=== PATIENT | female | born 1985 | race Caucasian/White ===

== ENCOUNTER 2022-08-16 10:37 | Emergency (ER) | payer OTHER, SELFPAY ==
[2022-08-16 10:46] VITALS: BP 125/77; PULSE 82; RESP 18; TEMP 37.2; O2SAT 100; BMI 26.2
[2022-08-16 11:02] LABS: MANUAL DIFF FLAG NO
[2022-08-16 11:07] LABS: Basophils Absolute Auto 0.1 X10*3/uL (0.0-0.2); Basophils Percent Auto 0.5 % (0-2); Eosinophils Absolute Auto 0.2 X10*3/uL (0.0-0.4); Eosinophils Percent Auto 1.3 % (0-4); Hematocrit 34.5 % (37.0-47.0); Hemoglobin 10.6 g/dl (12.0-16.0); Imm Gran Abs Auto 0.09 X10*3/uL (0.00-0.03); Imm Gran Pct Auto 0.8 % (0.0-0.4); Lymphocytes Absolute Auto 2.4 X10*3/uL (1.2-4.9); Lymphocytes Percent Auto 20.3 % (20-40); Mean Corpuscular HGB Conc 30.7 g/dl (31.0-35.0); Mean Corpuscular Hemoglobin 22.2 pg (27.0-33.0); Mean Corpuscular Volume 72.3 fL (80.0-98.0); Mean Platelet Volume 10.3 fL (9.4-12.3); Monocytes Absolute Auto 0.9 X10*3/uL (0.1-1.2); Monocytes Percent Auto 7.7 % (2-11); Neutrophils Absolute Auto 8.2 x10*3/uL (2.0-8.3); Neutrophils Percent Auto 69.4 % (45-73); Platelet Count 299 X10*3/uL (160-400); Red Blood Count 4.77 X10*6/uL (4.20-5.50); Red Cell Distribution Width 18.3 % (11.0-16.0); White Blood Count 11.8 X10*3/uL (4.8-10.8)
[2022-08-16 11:20] LABS: Anion Gap 10 (12-20); Blood Urea Nitrogen 13 mg/dL (9-16); Calcium 9.1 mg/dL (8.4-10.2); Carbon Dioxide 25 mmol/L (22-29); Chloride 109 mmol/L (96-108); Creatinine Clr Calc Pharmacy 86.7; Estimated Glomerular Filt Rate > 60; Glucose Random 103 mg/dL (60-115); Potassium 4.2 mmol/L (3.3-5.1); Sodium 140 mmol/L (135-145)
[2022-08-16 18:46] LABS: HCG Quantitative < 2 mIU/mL
== END 2022-08-16 17:07 | disposition left against medical advice (07) ==
PROVIDERS: Emergency Provider Emergency Medicine; PCP Internal Medicine
DX: R10.31 Right lower quadrant pain (principal)
CPT/HCPCS: 36415; 80048; 84702; 85025; 99282; 99283

== ENCOUNTER 2022-08-16 16:45 | Emergency (ER) | payer OTHER, SELFPAY ==
--- NOTE | ~2022-08-16 | US_ITS ---
EXAMINATION: US PELVIS CLINICAL INFORMATION: Right lower quadrant pain with question of torsion or abscess COMPARISON: CT abdomen pelvis earlier today TECHNIQUE: Ultrasound of the pelvis is performed using both transabdominal and transvaginal transducers along with Doppler. Transvaginal imaging is performed due to inadequate visualization transabdominally. FINDINGS: Uterus: The uterus is anteverted and measures 9.1 x 4.4 x 5.8 cm. Endometrium is thickened and heterogeneous at 2.2 cm.. The uterus is smooth in contour with no visible fibroid. Nabothian cysts are present in the cervix Adnexa: Both ovaries are visualized. There is normal color flow to the adnexa. There is no ovarian torsion. There is no pelvic ascites or fluid collection. Right ovary measures 1.7 x 2.2 x 2.4 cm for a volume of 4 mL. Some small benign-appearing cysts are noted in the right ovary as seen on the CT scan. Left ovary measures 1.3 x 2.2 x 1.3 cm for a volume of 2.0 mL. Prominent varices are seen in the left adnexa. No adnexal abscesses or free fluid is seen although a tiny amount was seen on the prior CT. US/US pelvic and transvaginal IMPRESSION: 1. No evidence of ovarian torsion. 2. Thickened heterogeneous endometrium. 3. Prominent left adnexal varices. 4. No abscess is seen.
--- NOTE | ~2022-08-16 | CT_ITS ---
EXAMINATION: CT ABDOMEN AND PELVIS WITH CONTRAST CLINICAL INFORMATION: Severe right lower quadrant pain COMPARISON: None available. TECHNIQUE: Multidetector volumetric images were obtained from the superior aspect of the liver through the pubic symphysis following administration 85 mL of Omnipaque 350 intravenous contrast. Sagittal and coronal reformatted images were obtained on the technologist's workstation. Oral contrast: No This CT examination was performed using dose optimization techniques as appropriate, variously including the following: *Automated exposure control *Adjustment of mA and/or kV according to patient size (this includes techniques or standardized protocols for targeted exams where dose is matched to indication/reason for exam; i.e. extremities or head) *Use of iterative reconstruction technique DLP: 441 mGy-cm FINDINGS: LUNG BASES: The visualized lung bases are unremarkable. LIVER, GALLBLADDER, AND BILIARY TREE: The liver is enlarged measuring over 19 cm in cephalocaudad dimension decreased attenuation suggesting hepatic steatosis in size, shape, and attenuation. Tiny 2 mm hypodensity again noted near the dome of the diaphragm of no concern. No worrisome focal hepatic lesion or biliary ductal dilatation is present. The gallbladder is unremarkable with no evidence of radiopaque gallstones, gallbladder wall thickening, or obvious pericholecystic inflammatory changes. PANCREAS: Unremarkable. SPLEEN: Unremarkable. ADRENAL GLANDS: Unremarkable. KIDNEYS AND URETERS: The kidneys are normal in size, shape, and attenuation. No hydronephrosis, hydroureter, or calculi seen. No perinephric stranding. BLADDER: Unremarkable. GASTROINTESTINAL TRACT: The small and large bowel are unremarkable. The appendix is is not seen with certainty but there is no evidence of appendicitis appendicitis.. ABDOMINAL WALL: No significant hernia is appreciated. LYMPH NODES: No retroperitoneal lymphadenopathy. VASCULAR: Unremarkable. PELVIC VISCERA: An anteverted uterus is present. The endometrium is thickened at about 2.5 cm. There is a tiny amount of free pelvic fluid present. There is a collapsed cyst with enhancing wall in the right ovary measuring only 1.5 cm. No worrisome adnexal mass is not seen. OSSEOUS STRUCTURES: Unremarkable. CT/CT abdomen pelvis w IV con IMPRESSION: 1. A definitive cause for the patient's right lower quadrant pain has not been found. There is a small right-sided ovarian cyst present which appears to be partially collapsed with enhancing smith. Perhaps cyst rupture cause for patient's pain. 2. Incidental note made of an enlarged fatty liver and thickened endometrium. Pelvic ultrasound may be useful. Fleischner guidelines were followed.
--- NOTE | ~2022-08-16 | US_ITS ---
EXAMINATION: US PELVIS CLINICAL INFORMATION: Right lower quadrant pain with question of torsion or abscess COMPARISON: CT abdomen pelvis earlier today TECHNIQUE: Ultrasound of the pelvis is performed using both transabdominal and transvaginal transducers along with Doppler. Transvaginal imaging is performed due to inadequate visualization transabdominally. FINDINGS: Uterus: The uterus is anteverted and measures 9.1 x 4.4 x 5.8 cm. Endometrium is thickened and heterogeneous at 2.2 cm.. The uterus is smooth in contour with no visible fibroid. Nabothian cysts are present in the cervix Adnexa: Both ovaries are visualized. There is normal color flow to the adnexa. There is no ovarian torsion. There is no pelvic ascites or fluid collection. Right ovary measures 1.7 x 2.2 x 2.4 cm for a volume of 4 mL. Some small benign-appearing cysts are noted in the right ovary as seen on the CT scan. Left ovary measures 1.3 x 2.2 x 1.3 cm for a volume of 2.0 mL. Prominent varices are seen in the left adnexa. No adnexal abscesses or free fluid is seen although a tiny amount was seen on the prior CT. US/US pelvic ovarian doppler IMPRESSION: 1. No evidence of ovarian torsion. 2. Thickened heterogeneous endometrium. 3. Prominent left adnexal varices. 4. No abscess is seen.
[2022-08-16 16:50] VITALS: BP 132/80; PULSE 82; RESP 19; TEMP 36.6; O2SAT 100; BMI 25.6
--- NOTE | 2022-08-16 16:53 | ED.ABDPAIN ---
HPI - Abdominal Pain General Chief Complaint: Abdominal Pain Stated Complaint: appendix Time Seen by Provider: 08/16/22 17:23 Source: patient Mode of arrival: ambulatory Limitations: no limitations History of Present Illness HPI narrative: 37 yold female presents to the ED for right lower quadrant abdominal pain that began since last night while she was sleeping. patient also states right sided flank pain. patient states no fever, chills, nuasea, diarrhea, or vaginal bleeding. patient denies any recent trauma. Patient states she had her tubes tied. Related Data Previous Rx's Medication Instructions Recorded ketorolac 10 mg tablet 10 mg PO QID PRN pain 5 days #20 08/16/22 tabs Allergies Allergy/AdvReac Type Severity Reaction Status Date / Time No Known Allergies Allergy Verified 08/16/22 10:45 Review of Systems Review of Systems RLQ pain and flank pain Yes all other systems are reviewed and are negative [facility] Social History Social History Alcohol intake: never Smoked in Last 30 Days: No Use of substances other than those prescribed or required for medical reasons: No Advance Directives: No Advance Directives Information Provided: No Patient : No Physical Exam ED Vital Signs: Vital Signs - 24 hr 08/16/22 16:50 08/16/22 18:23 08/16/22 20:59 Temperature 98 F 98.7 F Pulse Rate 82 55 Respiratory Rate 19 16 Blood Pressure 132/80 101/66 114/67 Pulse Oximetry 100 100 Oxygen Delivery Method Room Air Room Air BMI result Body Mass Index 25.6 Const General: cooperative, healthy appearing, comfortable, no acute distress, well developed, alert, awake and Physically active Orientation/consciousness: oriented to person, oriented to place, oriented to time and patient oriented x3 HENMT Head: Yes normal to inspection, Yes No palpable skull fracture present, Yes normocephalic, Yes atraumatic and No abrasion Eyes General: appearance normal, both eyes and all related structures Pupils: Equal, round and reactive pupils present Neck Neck: Yes normal visual inspection, Yes full ROM, Yes no lymphadenopathy, Yes no meningeal signs, Yes trachea midline, Yes supple, No anterior neck swelling and No tender Chest Chest palpation & inspection: normal inspection of the chest and normal palpation of entire chest wall Resp Effort & Inspection: normal respiratory effort and able to speak in complete sentences Auscultation: clear to auscultation bilaterally Cardio Jugular venous distension: no JVD Heart sounds: S1 normal heart sound present and S2 normal heart sound present GI Inspection: Yes normal to inspection and No abdominal wall ecchymosis Palpation (GI): Soft to palpation, not firm, Tenderness to palpation present (GI) in the RLQ, no guarding and not rigid General: Yes CVA tenderness (Right) Back/Spine/Pelvis Back: CVA tenderness (Right) Skin General skin exam: no rashes or lesions noted and elasticity normal Neuro General: oriented to person, oriented to place, oriented to time, patient oriented x3, gait normal, tone normal, moves all extremities, Normal light touch and pain sensation, no meningeal signs, no focal motor deficits, CN's II-XI intact bilaterally and normal sensation to monofilament Cranial nerves: Yes Equal, round and reactive pupils present Extrem General: Yes normal to inspection and Yes full ROM Psych Appearance: grossly normal, well kempt and not disheveled Course Course Course Narrative: RME - 37 year old female with the history of asthma presents to the ER for evaluation of severe right lower quadrant pain that started at midnight. She has been unable to sleep or get comfortable since the pain started. She was here in the ER earlier this morning but left prior to getting her CT scan. Labs showed WBC 11.8. She came back with worsening pain. She is in triage question her right lower quadrant. IV to be placed and CT scan with contrast to be performed. Patient had her tubes tied and is not . Plan: CT abd/pelvis w/ con Medical Decision Making Medical Decision Making [facility] Narrative: 37-year-old female presents to ED for right lower quadrant flank pain since yesterday. Patient denies any vaginal discharge, vaginal bleeding, dysuria, hematuria, or any vaginal lesions. Abdominal CT scan negative for any abdominal etiology but does shows possible ovarian cyst rupture. Ultrasound negative for ovarian torsion or abscess but does shows ovarian cyst. Patient pain relieved with morphine and toradol. Labs are normal in the morning. uA negative for infection. negative for pregnacy. Differential Diagnosis Differential Diagnoses: The differential diagnosis associated with the presentation includes (Appenditicis, coltis, ovarian cysts, ovarian torsion, kidney stones, pylenophritis) Admission/Observation Consideration of admission/observation: Escalation of care including admission/observation considered Lab Data [facility] Lab Attestation statement: I reviewed the patient's lab results. Labs: Lab Results 08/16/22 08/16/22 Range/Units 20:42 20:42 Urine Color Yellow Urine Appearance Clear Urine pH 7.0 (5.0-9.0) Ur Specific [place] >= 1.030 H (1.005-1.025) Urine Protein Negative (Neg-Trace) mg/dL Urine Glucose (UA) Negative (Negative) mg/dL Urine Ketones Negative (Negative) mg/dL Urine Blood Negative (Negative) Urine Nitrite Negative (Negative) Ur Leukocyte Esterase Negative (Negative) Urine Test NEGATIVE (NEGATIVE) Independent Interpretation I performed an independent interpretation of an: Ultrasound and CT Scan Radiology Impression Discussion of test interpretation with radiology: I have reviewed the radiologist's reading. Prescription Management I considered prescription management with: Pain Medication (toradol) Medications Administered Discontinued Medications Generic Name Dose Route Start Last Admin Trade Name Freq PRN Reason Stop Dose Admin Iohexol 100 ml 08/16/22 17:19 08/16/22 17:20 Iohexol 350 Mg/Ml 100 Ml Infus..Btl IV 08/16/22 17:20 85 ml ONCE ONE Administration Ketorolac Tromethamine 30 mg 08/16/22 17:08 08/16/22 17:24 Ketorolac Tromethamine 30 Mg/Ml Vial IVPUSH 08/16/22 17:09 30 mg ONCE ONE Administration Morphine Sulfate 4 mg 08/16/22 17:55 08/16/22 18:20 Morphine Sulfate 4 Mg/Ml Cartridge IVPUSH 08/16/22 17:56 4 mg ONCE ONE Administration Protocol Morphine Sulfate 4 mg 08/16/22 21:01 08/16/22 21:09 Morphine Sulfate 4 Mg/Ml Cartridge IVPUSH 08/16/22 21:02 4 mg ONCE ONE Administration Protocol Discharge Plan Discharge Clinical Impression: Abdominal pain, Ovarian cyst Patient Disposition: Home, Self-Care Instructions: Ovarian Cyst (ED), Abdominal Pain (ED), Pelvic Pain (ED) Additional Instructions: Your ultrasound shows ovarian cyst. Abdominal CT scan also shows ovarian cyst but the appendix is normal. 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 Return to ED for any worsening abdominal pain, vaginal discharge, vaginal bleeding, dysuria, hematuria, flank pain, fever, chills, nausea, vomiting, or any other concerning symptoms. Prescriptions: New ketorolac 10 mg tablet 10 mg PO QID PRN (Reason: pain) 5 Days Qty: 20 0RF Rx Instructions: received toradol 30mg IM in the ED Stand Alone Forms: Work/School Release Interventions: ED Discharge Assessment Last Done: 08/16/22 22:54 Discharge Date/Time: 08/16/22 22:54 Print Language: Latvian
[2022-08-16] MEDS: iohexoL 350 MG/ML 100 ML INFUS..BTL IV (17:20)
[2022-08-16] MEDS: Ketorolac Tromethamine 30 MG/ML VIAL IVPUSH (17:24)
[2022-08-16] MEDS: Morphine Sulfate 4 MG/ML CARTRIDGE IVPUSH ×2 (18:20→21:09)
[2022-08-16 18:23] VITALS: BP 101/66
[2022-08-16 20:48] LABS: Appearance Urine Clear; Color Urine Yellow; Glucose Urine UA Negative (Negative); Leukocyte Esterase Urine Negative (Negative); Nitrite Urine Negative (Negative); Specific Gravity - Urine >= 1.030 (1.005-1.025); Urine Blood Negative (Negative); Urine Ketones Negative (Negative); Urine Protein Negative (Neg-Trace)
[2022-08-16 20:49] LABS: UPreg QC Valid YES; Urine Pregnancy NEGATIVE (NEGATIVE)
[2022-08-16 20:59] VITALS: BP 114/67; PULSE 55; RESP 16; TEMP 37.1; O2SAT 100
== END 2022-08-16 22:54 | disposition home or self-care (01) ==
PROVIDERS: Physician Assistant; Emergency Provider Student in an Organized Health Care Education/Training Program
DX: R10.31 Right lower quadrant pain (principal); N83.201 Unspecified ovarian cyst, right side
CPT/HCPCS: 74177; 76830; 76856; 81003; 81025; 93975; 96374; 96375; 96376; 99284; J1885; J2270; Q9967

== ENCOUNTER 2025-03-05 12:19 | Outpatient (REF) | payer OTHER, SELFPAY ==
--- OUTSIDE RECORDS SUMMARY | 2025-03-05 11:15 | XMS_ITS | Encounter Summary ---
Author Organization [employer] Address [address] [facility] 7t [place] [address] Care Team Providers Care Optimization Engineer Name Role Phone Tito Stauffer TAMPER OPERATOR Unavailable Unavailable Balbina Reynolds DO Primary Care Provider Encounter Details Date Type Department Care Team (Late st Contact Info) Description 03/05/2025 11:15 AM EST Office Visit [facility] [address] [place] [address] Balbina Reynolds DO [address] [place], [place] [phone] Anemia, unspecified type (Primary Dx) Social History Tobacco Use Types Packs/Day Years Used Date Smoking Tobacco: Every Day Cigarettes Passive Smoke Exposure: Current Smokeless Tobacco: Never Tobacco Cessation:Ready to Q uit: Not Asked; Counseling Given: Not Answered Alcohol Use Standard Drinks/Week Comments Never 0 (1 standard drink = 0.6 oz pur e alcohol) Alcohol Answer Date Recorded How often do you have a drink containing alcohol ? 0 03/05/2025 How many drinks containing a lcohol do you have on a typical day when you are drinking? 0 03/05/2025 How often do you have six or more drinks on one occasion? 0 03/05/2025 Depression Answer Date Recorded Patient Health Questionnaire-9 Score 22 03/05/2025 Patient Health Questionnaire-9 Score 22 03/05/2025 Last PHQ-9: Questionnaire Data Not on file 1 05/06/2024 Housing Stability Answer Date Recorded What is your housing situation today? I have kaden velazquez 03/05/[address] you li ve. Do you have problems with any of the following? None of the above 03/05/2025 Food Insecurity Answer Date Recorded Within the past 12 months, y ou worried that your food would run out before you got money to buy more: Never True 03/05/2025 Within the past 12 months,th e food you bought just didn't last and you didn't have enough money to get more: Never True Transportation Answer Date Recorded In the past 12 months, has l ack of transportation kept you from medical appts, meetings, work or from getting things needed for daily living? No 03/05/2025 Utilities Answer Date Recorded In the past 12 months, has t he electric, gas, oil or water company threatened to shut off services in your home? No 03/05/2025 Depression Answer Date Recorded Patient Health Questionnaire-2 Score 6 03/05/2025 Internet Access Answer Date Recorded Internet Access Q1 Yes 03/05/2025 Internet Access Q2 Not on file 03/05/2025 Comments Unknown Sex and Gender Information Value Date Recorded Sex Assigned at Female 01/17/2022 10:15 AM EDT Legal Sex Female 10:15 AM EDT Gender Identity Female 01/17/2022 10:15 AM EDT Sexual Orientation Straight 01/17/2022 10 :15 AM EDT documented as of this encounter Last Filed Vital Signs Vital Sign Reading Time Taken Comments Blood Pressure 122/84 03/05/2025 11:56 AM EST Pulse 80 03/05/2025 11:56 AM EST Temperature 37 C (98.6 F) 03/05/2025 11:56 AM EST Respiratory Rate 19 03/05/2025 11:56 AM EST Oxygen Saturation - - Inhaled Oxygen Concentration - - Weight 80.5 kg (177 lb 8 oz) 03/05/2025 11:56 AM EST Height 159.7 cm (5' 2.89 ) 03/05/2025 11:[address] Body Mass Index 31.55 03/05/2025 11:56 AM EST documented in this encounter Functional Status * Over the past 2 weeks, how often have you been bothered by any of the following problems? Question Answer Date of Assessment Author Patient Health Questionnaire-2 Score 6 02/17 11:58 AM Timo Watts MA * Little interest or pleasure in doing things Answer Date of Assessment Author Nearly every day 03/05/2025 11:58 AM Lan Watts MA * Feeling down, depressed, or hopeless Answer Date of Assessment Author Nearly every day 03/05/2025 11:58 AM Lan Watts [place] * Trouble falling or staying asleep, or sleeping too much Answer Date of Assessment Author Nearly every day 03/05/2025 11:58 AM Lan Watts MA * Feeling tired or having little energy Answer Date of Assessment Author Nearly every day 03/05/2025 11:58 AM Lan Watts MA * Poor appetite or overeating Answer Date of Assessment Author Nearly every day 03/05/2025 11:58 AM Lan Watts MA * Feeling bad about yourself - or that you are a failure or have let yourself or your family down Answer Date of Assessment Author Several days 03/05/2025 11:58 AM Gail Watts MA * Trouble concentrating on things, such as reading the newspaper or watching television Answer Date of Assessment Author Nearly every day 03/05/2025 11:58 AM Lan Watts MA * Moving or speaking so slowly that other people could have noticed? Or the opposite - being so fidgety or restless that you have been moving around a lot more than usual. Answer Date of Assessment Author Nearly every day 03/05/2025 11:58 AM Lan Watts MA * Thoughts that you would be better off or hurting yourself in some way Answer Date of Assessment Author Not at all 03/05/2025 11:58 AM Gail Watts MA * Patient Health Questionnaire-9 Score Answer Date of Assessment Author 03/05/2025 11:58 AM Gail Watts MA * Over the last 2 weeks, how often have you been bothered by any of the following problems? Question Answer Date of Assessment Author Feeling nervous, anxious, or on edge 3 02/17 11:58 AM Timo Watts MA Not being able to stop or co ntrol worrying 3 03/05/2025 11:58 AM Timo Watts M A Worrying too much about diff erent things 3 03/05/2025 11:58 AM Timo Watts M A Trouble relaxing 3 03/05/2025 11:58 AM Timo Watts MA Being so restless that it is hard to sit still 1 03/05/2025 11:58 AM Timo Watts M A Becoming easily annoyed or irritable 3 02/17 11:58 AM Timo Watts MA Feeling afraid as if somethi ng awful might happen 0 03/05/2025 11:58 AM Timo Watts M A KEILY-7 Total Score 16 03/05/2025 11:58 AM Timo Watts MA * How difficult have these problems made it for you to do your work, take care of things at home, or get along with other people? Answer Date of Assessment Author Very difficult 03/05/2025 11:58 AM Gail Watts MA documented as of this encounter Plan of Treatment Scheduled Orders Name Type Priority Associated Diagnoses Orde r Schedule Hepatitis B surface antigen, EIA Lab Routine Anemia, unspecified type Expected: 03/05/2025 (Approximate), Expires: 03/05/2026 Chlamydia/N. Gonorrhoeae RNA, TMA, Urogenitial Microbiology Routine Anemia, unspecified type Ordered: 03/05/2025 HIV-1/2 Antigen and Antibodies, Fourth Generation, with Reflexes Lab Routine Anemia, unspecified type Expected: 03/05/2025 (Approximate), Expires: 03/05/2026 Hepatitis C Antibody with Reflex to HCV, RNA, Quantitative, Real-Time PCR Lab Routine Anemia, unspecified type Expected: 03/05/2025, Expires: 03/05/2026 RPR (Monitor) with Reflex to Titer Lab Routine Anemia, unspecified type Expected: 03/05/2025, Expires: 03/05/2026 Hepatitis B Surface Antibody, Qualitative Lab Routine Anemia, unspecified type Expected: 03/05/2025 (Approximate), Expires: 03/05/2026 Vitamin B12 (Cobalamin) and Folate Panel, Serum Lab Routine Anemia, unspecified type Expected: 03/05/2025, Expires: 03/05/2026 Hepatitis A Antibody, Total Lab Routine Anemia, unspecified type Expected: 03/05/2025 (Approximate), Expires: 03/05/2026 Hepatitis B Core Antibody, Total Lab Routine Anemia, unspecified type Expected: 03/05/2025 (Approximate), Expires: 03/05/2026 documented as of this encounter Procedures Procedure Name Priority Date/Time Associated Diagnosis Comments VITAMIN D,25-OH,TOTAL,IA Routine 03/05/2025 12:43 PM EST Anemia, unspecified type IRON AND TOTAL IRON BINDING CAPACITY Routine 03/05/2025 12:43 PM EST Anemia, unspecified type CBC Routine 03/05/2025 12:43 PM EST Anemia, unspecified type TSH Routine 03/05/2025 12:43 PM EST Anemia, unspecified type T4, FREE Routine 03/05/2025 12:43 PM EST Anemia, unspecified type MAGNESIUM Routine 03/05/2025 12:43 PM EST Anemia, unspecified type HEMOGLOBIN A1C Routine 03/05/2025 12:43 PM EST Anemia, unspecified type FERRITIN Routine 03/05/2025 12:43 PM EST Anemia, unspecified type HEPATIC FUNCTION PANEL Routine 03/05/2025 12:43 PM EST Anemia, unspecified type LIPID PANEL, STANDARD Routine 03/05/2025 12:43 PM EST Anemia, unspecified type BASIC METABOLIC PANEL Routine 03/05/2025 12:43 PM EST Anemia, unspecified type documented in this encounter Results * Magnesium (03/05/2025 12:43 PM EST) Magnesium 2.0 1.6 - 2.6 mg/dL [facility] Blood Venous blood specimen / Unknown 03/05/2025 12:43 PM EST 03/05/2025 2:25 PM EST us Balbina Reynolds DO LAB BLOOD ORDERABLES Final R esult Performing Organization Address City/[facility]/ZIP Co de Phone Number [facility] [address] [place] [phone] * (ABNORMAL) Iron And Total Iron Binding Capacity (03/05/2025 12:43 PM EST) Pathologist [facility] Iron 57 30 - 160 mcg/dL [facility] Total Iron Binding Capacity 420 228 - 428 mcg/dL [facility] Percent Iron Saturation 14(L) 15 - 50 % [facility] Unsaturated Iron Binding 363 ug/dL [facility] Blood Venous blood specimen / Unknown 03/05/2025 12:43 PM EST 03/05/2025 2:25 PM EST us Balbina Reynolds DO LAB BLOOD ORDERABLES Final R esult Performing Organization Address [facility] Co de Phone Number [facility] [address] [place] [phone] * (ABNORMAL) Ferritin (03/05/2025 12:43 PM EST) Pathologist [facility] Ferritin 9(L) 10 - 250 ng/mL [facility] Blood Venous blood specimen / Unknown 03/05/2025 12:43 PM EST 03/05/2025 2:25 PM EST us Balbina Reynolds DO LAB BLOOD ORDERABLES Final R esult Performing Organization Address City/[facility]/ZIP Co de Phone Number [facility] [address] [place] [phone] * (ABNORMAL) Basic Metabolic Panel (03/05/2025 12:43 PM EST) Pathologist [facility] Sodium 139 135 - 145 mmol/L [facility] Potassium 4.0 3.3 - 5.1 mmol/L [facility] Chloride 107 96 - 108 mmol/L [facility] Carbon Dioxide 25 22 - 29 mmol/L [facility] Anion Gap 11(L) 12 - 20 [facility] Urea Nitrogen (BUN) 11 9 - 16 mg/dL [facility] Creatinine, Serum 0.64 0.5 - 1.4 mg/dL [facility] Estimated Glomerular Filt Rate >60 [facility] Comment:Chronic Kidney Disea se: Estimated GFR < 60 mL/min/[id number] Kidney Disease: Estimated GFR < 15 mL/min/1.73m2 Glucose 101 60 - 115 mg/dL [facility] Calcium 9.2 8.4 - 10.2 mg/dL [facility] Blood Venous blood specimen / Unknown 03/05/2025 12:43 PM EST 03/05/2025 2:25 PM EST us Balbina Reynolds DO LAB BLOOD ORDERABLES Final R esult Performing Organization Address City/State/[facility] Co de Phone Number [facility] [address] [place] [address] [phone] * (ABNORMAL) CBC (03/05/2025 12:43 PM EST) Pathologist [facility] White Blood Count 11.0(H) 4.8 - 10.8 X10*3/uL [facility] Red Blood Count 5.04 4.20 - 5.50 X10*6/uL [facility] Hemoglobin 12.0 12.0 - 16.0 g/dl [facility] Hematocrit 37.3 37.0 - 47.0 % [facility] Mean Corpuscular Volume 74.0(L) 80.0 - 98.0 fL [facility] Mean Corpuscular Hemoglobin 23.8(L) 27.0 - 33.0 pg [facility] Mean Corpuscular HGB Conc 32.2 31.0 - 35.0 g/dl [facility] Red Cell Distribution Width 17.3(H) 11.0 - 16.0 % [facility] Platelet Count 361 160 - 400 X10*3/uL [facility] Mean Platelet Volume 10.9 9.4 - 12.3 fL [facility] NRBC Pct Auto 0.0 0.0 - 0.2 /100WBC [facility] NRBC Abs Auto 0.000 0.0 - 0.012 X10*3/uL [facility] Blood Venous blood specimen / Unknown 03/05/2025 12:43 PM EST 03/05/2025 2:22 PM EST Balbina Reynolds DO LAB BLOOD ORDERABLES Final R esult [facility] [address] [place] [phone] * Hemoglobin A1c (03/05/2025 12:43 PM EST) Hemoglobin A1c 4.8 <6.0 % [facility] Comment:Hemoglobin A1C Refer ence Range Adults: 4.8 - 6.0 % Non diabetic: < 6.0 % Goal: < 7.0 %Additional Action Suggested: > 8.0 %Note: Hemoglobin A1c results are invalid for patients with abnormal amounts of HbF. Blood transfusions may impact the HbA1c concentration in the patient sample. Estimated Average Glucose 91 mg/dL [facility] Comment:eAG = Estimated ave rage glucose which is %A1C expressed asaverage glucose, using the formula of the [id number] Glucose study (ADAG), Diabetes Care, Vol.31,#8,Oct. 2007 Blood Venous blood specimen / Unknown 03/05/2025 12:43 PM EST 03/05/2025 2:22 PM EST Balbina Reynolds DO LAB BLOOD ORDERABLES Final R esult [facility] [address] [place] [phone] * (ABNORMAL) Hepatic Function Panel (03/05/2025 12:43 PM EST) Bilirubin, Total 0.4 0.0 - 1.0 mg/dL [facility] Bilirubin, Direct 0.2 0.0 - 0.5 mg/dL [facility] Aspartate Amino Transferase 44(H) 5 - 31 U/L [facility] Alanine Aminotransferase 103(H) 0 - 31 U/L [facility] Total Protein 7.5 6.5 - 8.0 g/dL [facility] Albumin Level 4.5 3.5 - 5.0 g/dL [facility] Alkaline Phosphatase 127(H) 39 - 117 U/L [facility] Blood Venous blood specimen / Unknown 03/05/2025 12:43 PM EST 03/05/2025 2:25 PM EST us Balbina Reynolds DO LAB BLOOD ORDERABLES Final R esult [facility] [address] [place] [phone] * (ABNORMAL) Vitamin D, 25-Hydroxy, Total, Immunoassay (03/05/2025 12:43 PM EST) Vitamin D 25-OH Total 15.6(L) >30 ng/mL [facility] Comment: Health Based Reference Values*< 20 ng/mL Auswaqcsk72-73 ng/mL Insufficient> 30 ng/mL Sufficient*Naif WOLFE. N Engl J Med. 2007;357:266-280There is no well-established upper level of normal vitamin Dlevels. Some laboratories use 50 ng/mL as an upper limit ofnormal. However, toxicity is patient-dependent and may occurat any level. Careful correlation with the patient'spresentation is necessary and, if there is concern forvitamin D toxicity, treatment should be consideredirrespective of the serum level.Care must be taken in interpreting Vitamin D results fromdifferent laboratories and methodologies. Published datademonstrated that results from patients undergoinghemodialysis may show a negative bias when tested withvarious automated 25-OH vitamin D assays when compared toLC-MS/MS.When testing samples from patients whose predominant form ofVitamin D is Vitamin D2, such as patients receiving VitaminD2 supplementation, results that are subtherapeutic shouldbe confirmed with another method such as LC-MS/MS. Blood Venous blood specimen / Unknown 03/05/2025 12:43 PM EST 03/05/2025 2:25 PM EST Balbina Reynolds DO LAB BLOOD ORDERABLES Final R esult Performing Organization Address City/[facility]/ZIP Co de Phone Number [facility] [address] [place] [phone] * TSH (03/05/2025 12:43 PM EST) Thyroid Stimulating Hormone 0.98 0.32 - 4.0 uIU/mL [facility] Comment:TSH 3rd Generation ( [facility]) Blood Venous blood specimen / Unknown 03/05/2025 12:43 PM EST 03/05/2025 2:25 PM EST Balbina Reynolds DO LAB BLOOD ORDERABLES Final R esult Performing Organization Address City/[facility]/ZIP Co de Phone Number [facility] [address] [place] [address] [phone] * (ABNORMAL) Lipid Panel, Standard (03/05/2025 12:43 PM EST) Triglycerides 169(H) <150 mg/dL [facility] Comment:Desirable Triglyceri de: less than 150 mg/dLBorderline High Triglyceride 150-199 mg/dLHigh Triglyceride: 200-499 mg/dLVery High Triglyceride: greater than or equal to 5OO mg/dL Cholesterol 162 <200 mg/dL [facility] Comment:Desirable Cholestero l: less than 200 mg/dLBorderline High Cholesterol: 200-239 mg/dLHigh Cholesterol: greater than 239 mg/dL LDL Cholesterol Calculated 94 <100 mg/dL [facility] Comment:Desirable LDL: less than 100 mg/dLNear Optimal/Above Optimal LDL: 110- 129 mg/dLBorderline High LDL: 130-159 mg/dLHigh LDL: 160-189 mg/dLVery High LDL: greater than or equal to 190 mg/dL HDL Cholesterol 35(L) >40 mg/dL [facility] Comment:Desirable HDL: great er than 40 mg/dL Note: This HDL assay may give artificially low results in patients with liver disease. Blood Venous blood specimen / Unknown 03/05/2025 12:43 PM EST 03/05/2025 2:25 PM EST us Balbina Reynolds DO LAB BLOOD ORDERABLES Final R esult Performing Organization Address [facility] de Phone Number [facility] [address] [place] [address] [phone] * T4, Free (03/05/2025 12:43 PM EST) Free T4 (Free Thyroxine) 0.86 0.71 - 1.85 ng/dL [facility] Blood Venous blood specimen / Unknown 03/05/2025 12:43 PM EST 03/05/2025 2:25 PM EST Balbina Reynolds DO LAB BLOOD ORDERABLES Final R esult Performing Organization Address [facility] Co de Phone Number [facility] [address] [place] [address] [phone] documented in this encounter Visit Diagnoses Diagnosis Anemia, unspecified type- Primary documented in this encounter Additional Health Concerns Assessment Noted Time PHQ-9 Depression Total Score: 22 025 11:58 AM EST documented as of this encounter Care Teams Optimization Engineer Relationship Specialty Start Date End Date Balbina Reynolds DO [address] [place] [phone] PCP - General Family Medicine 12/06/23 Tito Stauffer FNP Nurse Practitioner Family Medicine 01/31/23 documented as of this encounter
[2025-03-05 14:31] LABS: Hematocrit 37.3 % (37.0-47.0); Hemoglobin 12.0 g/dl (12.0-16.0); Mean Corpuscular HGB Conc 32.2 g/dl (31.0-35.0); Mean Corpuscular Hemoglobin 23.8 pg (27.0-33.0); Mean Corpuscular Volume 74.0 fL (80.0-98.0); NRBC Abs Auto 0.000 X10*3/uL (0.0-0.012); NRBC Pct Auto 0.0 /100WBC (0.0-0.2); Platelet Count 361 X10*3/uL (160-400); Red Blood Count 5.04 X10*6/uL (4.20-5.50); White Blood Count 11.0 X10*3/uL (4.8-10.8)
[2025-03-05 15:29] LABS: Alanine Aminotransferase 103 U/L (0-31); Albumin Level 4.5 g/dL (3.5-5.0); Alkaline Phosphatase 127 U/L (39-117); Anion Gap 11 (12-20); Aspartate Amino Transferase 44 U/L (5-31); Blood Urea Nitrogen 11 mg/dL (9-16); Calcium 9.2 mg/dL (8.4-10.2); Carbon Dioxide 25 mmol/L (22-29); Chloride 107 mmol/L (96-108); Cholesterol 162 mg/dL (<200); Estimated Glomerular Filt Rate > 60; HDL Cholesterol 35 mg/dL (>40); Iron 57 mcg/dL (30-160); Magnesium 2.0 mg/dL (1.6-2.6); Percent Iron Saturation 14 % (15-50); Potassium 4.0 mmol/L (3.3-5.1); Sodium 139 mmol/L (135-145); Total Iron Binding Capacity 420 mcg/dL (228-428); Total Protein 7.5 g/dL (6.5-8.0); Triglycerides 169 mg/dL (<150); Unsaturated Iron Binding 363 ug/dL
[2025-03-05 15:51] LABS: Ferritin 9 ng/mL (10-250); Free T4 (Free Thyroxine) 0.86 ng/dL (0.71-1.85); Thyroid Stimulating Hormone 0.98 uIU/mL (0.32-4.0)
--- OUTSIDE RECORDS SUMMARY | 2025-03-05 16:13 | XMS_ITS | Encounter Summary ---
Author Organization [employer] Address [address] [facility] 7 [place] [address] Care Team Providers Care Health Information Systems Technician Name Role Phone Tito Stauffer CUSTOM CAR BUILDER Unavailable Unavailable Balbina Reynolds DO Primary Care Provider [phone] Reason for Visit * Reason Onset Date Comments Appointment Request 03/04/2025 Encounter Details Date Type Department Care Team ([facility] st Contact Info) Description 03/04/2025 Telephone [facility] MEDICINE [address] [place], [place] [phone] Balbina Reynolds DO [address] [place], [place] [phone] Appointment Request Social History Tobacco Use Types Packs/Day Years Used Date Smoking Tobacco: Every Day Cigarettes Passive Smoke Exposure: Never Smokeless Tobacco: Never Alcohol Use Standard Drinks/Week Comments Never 0 [...] AM EDT documented as of this encounter Miscellaneous Notes * Telephone Encounter - Maliha Carver RN - 03/04/2025 12:40 PM EST TC placed to patient [phone] in regards to below message. Patient reports she did not attend her appointment because her ride never showed. RN r/s to 03/05/25 at 11:15AM, patient agreed to appointment date and time. Patient to f/u PRN. * Telephone Encounter - Rimma Shaffer - 03/04/2025 12:03 PM EST Tc from pt requesting to r/s 03/04 site on sick Please contact at [phone] documented in this encounter Plan of Treatment Not on file documented as of this encounter Visit Diagnoses Not on filedocumented in this encounter Additional Health Concerns Assessment Noted Time PHQ-9 Depression Total Score: 6 07/25/19 24 9:56 AM EDT documented as of this encounter Care Teams Health Information Systems Technician Relationship Specialty Start Date End Date Balbina Reynolds DO [address] [place] [phone] PCP - General Family Medicine 12/06/23 Tito Stauffer FNP Nurse Practitioner Family Medicine 01/31/23 documented as of this encounter
--- OUTSIDE RECORDS SUMMARY | 2025-03-05 16:13 | XMS_ITS | Encounter Summary ---
Author Organization [email or web address] Address [address] [facility] 7 [place] [address] Care Team Providers Care Bath Tester Name Role Phone Tito Stauffer SECURITY INTERN Unavailable Unavailable Balbina Reynolds DO Primary Care Provider [phone] Reason for Visit * Reason Onset Date Comments No Show 03/04/2025 Encounter Details Date Type Department Care Team (Late st Contact Info) Description 03/04/2025 Telephone [facility] MEDICINE [address] [place], [place] [phone] Balbina Reynolds DO [address] [place], [place] [phone] No Show Social History Tobacco Use Types Packs/Day Years [...] encounter Miscellaneous Notes * Telephone Encounter - Jennifer Montalvo - 03/04/2025 12:35 PM EST Pt no showed to appointment on 03/04/25 sick onsite. documented in this encounter Plan of Treatment Not on file documented as of this encounter Visit Diagnoses Not on filedocumented in this encounter Additional Health Concerns Assessment Noted Time PHQ-9 Depression Total Score: 6 07/25/19 24 9:56 AM EDT documented as of this encounter Care Teams Bath Tester Relationship Specialty Start Date End Date Balbina Reynolds DO [address] [place] [address] PCP - General Family Medicine 12/06/23 Tito Stauffer FNP Nurse Practitioner Family Medicine 01/31/23 documented as of this encounter
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
--- OUTSIDE RECORDS SUMMARY | 2025-03-05 16:13 | XMS_ITS | Encounter Summary ---
Author Organization [employer] Address [address] [facility] 7 [place] [address] Care Team Providers Care Scraper Burrer Name Role Phone Tito Stauffer WELDING MACHINE ASSEMBLER Unavailable Unavailable Balbina Reynolds DO Primary Care Provider [phone] Encounter Details Date Type Department Care Team (Late st Contact Info) Description 03/04/2025 Telephone [facility] [address], [place] [phone] Balbina Reynolds DO [address] [place], [place] [phone] Social History Tobacco Use Types Packs/Day Years [...] AM EDT documented as of this encounter Functional Status * Over the [...] as of this encounter Plan of Treatment Not on file documented as of this encounter Visit Diagnoses Not on filedocumented in this encounter Additional Health Concerns Assessment Noted Time PHQ-9 Depression Total Score: 6 07/25/19 24 9:56 AM EDT documented as of this encounter Care Teams Scraper Burrer Relationship Specialty Start Date End Date Balbina Reynolds DO [address] [place] [address] [place] [phone] PCP - General Family Medicine 12/06/23 Tito Stauffer FNP Nurse Practitioner Family Medicine 01/31/23 documented as of this encounter
--- OUTSIDE RECORDS SUMMARY | 2025-03-05 16:13 | XMS_ITS | Encounter Summary ---
Author Organization [employer] Address [address] [facility] 7t [place] [address] Care Team Providers Care Ibm Mainframe Systems Programmer Name Role Phone Tito Stauffer FRANCHISE SPECIALIST Unavailable Unavailable Balbina Reynolds DO Primary Care Provider [phone] Encounter Details Date Type Department Care Team (Latest Contact Info) Description 03/05/2025 Travel Social History Tobacco Use Types Packs/Day Years Used Date Smoking Tobacco: Every Day Cigarettes Passive Smoke Exposure: Current Smokeless Tobacco: Never Alcohol Use Standard Drinks/Week [...] is your housing situation today? I have kadenifrah velazquez 03/05/[address] you [...] Questionnaire-9 Score Answer Date of Assessment Author 22 03/05/2025 11:58 AM Gail Watts MA * [...] Assessment Author Very difficult 03/05/2025 11:58 AM EST Gail Fleming MA documented as of this encounter Plan of Treatment Not on file documented as of this encounter Visit Diagnoses Not on filedocumented in this encounter Additional Health Concerns Assessment Noted Time PHQ-9 Depression Total Score: 22 025 11:58 AM EST documented as of this encounter Care Teams Ibm Mainframe Systems Programmer Relationship Specialty Start Date End Date Balbina Reynolds DO [address] [place] [address] [place] [address] PCP - General Family Medicine 12/06/23 Tito Stauffer FNP Nurse Practitioner Family Medicine 01/31/23 documented as of this encounter
--- OUTSIDE RECORDS SUMMARY | 2025-03-05 16:14 | XMS_ITS | Encounter Summary ---
Author Organization [employer] Address [address] [place] [address] [place], [place] [address] Care Team Providers Care Roll Panner Name Role Phone Jacquelin Sumner Primary Care Provider [phone] Aliza Dawkins MD Primary Care Pro vider Tito Stauffer Unavailable Unavailable Balbina Reynolds DO Primary Care Provider [phone] Encounter Details Date Type Department Care Team ([facility] st Contact Info) Description 08/25/2022 Abstract [facility] Information Management [address] [place] [address] Jacquelin Sumner FNP [address] [place] [address] Social History Tobacco Use Types Packs/Day Years Used Date Smoking Tobacco: Never Passive Smoke Exposure: Never Smokeless Tobacco: Never PHQ-2 Answer Date Recorded Patient Health Questionnaire-2 Score 2 06/02/2022 Comments Unknown Sex and Gender Information Value Date Recorded Sex Assigned at Female 01/17/2022 10:15 AM EDT Legal Sex Female 10:15 AM EDT Gender Identity Female 01/17/2022 10:15 AM EDT Sexual Orientation Straight 01/17/2022 10 :15 AM EDT COVID-19 Exposure Response Date Recorded In the last 10 days, have yo u been in contact with someone who was confirmed or suspected to have Coronavirus/COVID-19? No / Unsure 08/16/2022 9:54 AM EDT documented as of this encounter Plan of Treatment Not on file documented as of this encounter Visit Diagnoses Not on filedocumented in this encounter Additional Health Concerns Assessment Noted Time PHQ-9 Depression Total Score: 8 06/03/19 23 11:08 AM EDT documented as of this encounter Care Teams Roll Panner Relationship Specialty Start Date End Date Jacquelin Sumner FNP [address] [place] [address] PCP - General Family Medicine 03/15/22 08/30/22 Aliza Dawkins MD [address] [place] [address] PCP - General Internal Medicine 08/31/22 11/27/23 Balbina Reynolds DO [address] [place] [address] PCP - General Family Medicine 12/06/23 Tito Stauffer FNP [address] [place] [address] Nurse Practitioner Family Medicine 01/31/23 documented as of this encounter
--- OUTSIDE RECORDS SUMMARY | 2025-03-05 16:14 | XMS_ITS | Encounter Summary ---
Author Organization [employer] Address [address] [facility] [address], [place] [address] Care Team Providers Care Tray Server Name Role Phone Jacquelin Sumner Primary Care Provider [phone] Aliza Dawkins MD Primary Care Pro vider Tito Stauffer Unavailable Unavailable Balbina Reynolds DO Primary Care Provider [phone] Reason for Visit * Reason Onset Date Comments TP APPT 06/13/2022 Encounter Details Date Type Department Care Team (Late st Contact Info) Description 06/13/2022 Telephone [facility] MEDICINE [address] [place] [address] Jacquelin Sumner FNP [address] [place], [place] [phone] TP APPT Social History Tobacco Use Types Packs/Day Years Used Date Smoking Tobacco: Never Assessed PHQ-2 Answer Date Recorded Patient Health Questionnaire-2 Score 2 06/02/2022 Comments Unknown Sex and Gender Information Value Date Recorded Sex Assigned at Female 01/17/2022 10:15 AM EDT Legal Sex Female 10:15 AM EDT Gender Identity Female 01/17/2022 10:15 AM EDT Sexual Orientation Straight 01/17/2022 10 :15 AM EDT documented as of this encounter Miscellaneous Notes * Telephone Encounter - Germán Zamorano - 06/13/2022 2:06 PM EDT Tc from pt requesting to r/s appt for TP omn 06/13/2022 Please contact pt at [phone] documented in this encounter Plan of Treatment Not on file documented as of this encounter Visit Diagnoses Not on filedocumented in this encounter Additional Health Concerns Assessment Noted Time PHQ-9 Depression Total Score: 8 06/03/19 11:08 AM EDT documented as of this encounter Care Teams Tray Server Relationship Specialty Start Date End Date Jacquelin Sumner FNP [address] [place] [address] PCP - General Family Medicine 03/15/22 08/30/22 Aliza Dawkins MD [address] [place] [address] PCP - General Internal Medicine 08/31/22 11/27/23 Balbina Reynolds DO [address] [place] [address] PCP - General Family Medicine 12/06/23 Tito Stauffer FNP [address] [place] [address] Nurse Practitioner Family Medicine 01/31/23 documented as of this encounter
--- OUTSIDE RECORDS SUMMARY | 2025-03-05 16:14 | XMS_ITS | Clinical Summary ---
Author Organization [facility] Address [address] [place] [address] Phone Care Team Providers Care Masonry Inspector Name Role Phone Physician, No Pcp Primary Care Provider Unavaila ble Allergies No known active allergies Medications meclizine (ANTIVERT) 25 mg tablet Take 1 tablet (25 mg total) by mouth 3 (three) times a day if needed for dizziness for up to 10 days. 30 tablet 02/27/20 25 Active Problems No known active problems Encounters Date Type Department Care Team Description 02/15/2025 7:51 PM EST - 02/16/2025 1:15 AM EST Emergency [facility] Emergency [address] [place] [address] Pro Kraus MD Benign positional vertigo, bilateral (Primary Dx); Migraine without aura and without status migrainosus, not intractable Discharge Disposition: Home or Self Care from Last 3 Months Medical History Medical History Date Comments Asthma Depression Anxiety Seizures ([facility] V24, [facility] V28) Social History Tobacco Use Types Packs/Day Years Used Date Smoking Tobacco: Every Day Cigarettes Smokeless Tobacco: Never Tobacco Cessation:Ready to Q uit: Not Asked; Counseling Given: Not Answered Alcohol Use Standard Drinks/Week Comments Never 0 (1 standard drink = 0.6 oz pur e alcohol) Comments No Sex and Gender Information Value Date Recorded Sex Assigned at Not on file Legal Sex Female 7:36 AM EST Gender Identity Not on file Sexual Orientation Not on file Last Filed Vital Signs Vital Sign Reading Time Taken Comments Blood Pressure 95/71 02/16/2025 12:30 AM EST Pulse 56 02/16/2025 12:30 AM EST Temperature 36.6 C (97.9 F) 02/16/2025 12:30 AM EST Respiratory Rate 18 02/16/2025 12:30 AM EST Oxygen Saturation 100% 02/16/2025 12:30 AM EST Inhaled Oxygen Concentration - - Weight 68 kg (150 lb) 05/14/2024 7:44 AM EST Height 157.5 cm (5' 2 ) 05/14/2024 7:44 AM EST Body Mass Index 27.44 05/14/2024 7:44 AM EST Plan of Treatment Health Maintenance Due Date Last Done Comments Breast Cancer Screening 1983 Hepatitis B Vaccines (1 of 3 - 19+ 3-dose series) 2002 Cervical Cancer Screening: P ap Smear 2004 HPV Vaccines (1 - 3-dose SCD M series) 2010 Depression Screening 03/20/2024 Cholesterol Screening (Lipid Panel) 05/14/2024 HIV Screening 05/14/2024 Hepatitis C Screening 05/14/2024 Medicare Annual Wellness Visit 05/14/2024 Social Influencers of Health Screening 05/14/2024 COVID-19 Vaccine (1 - 2024-2 6 season) 2024 Influenza Vaccine (#1) 2024 , 04/12/2017, 12/26/2012 DTaP,Tdap,and Td Vaccines (4 - Td or Tdap) 08/12/2027 08/11/2017, 09/13/2014, 11/02/2013 RSV Immunization Adult Patients (1 - 1-dose 75+ series) 2058 MMR Vaccines Aged Out 11/02/2013 No longer eligi ble based on patient's age to complete this topic Pneumococcal Vaccine: Pediatrics (0 to 5 Years) and At-Risk Patients (6 to 49 Years) Completed 12/06/2023, 09/13/2014, 11/02/2013 HIB Vaccines Aged Out No longer eligi ble based on patient's age to complete this topic Hepatitis A Vaccines Aged Out No long er eligible based on patient's age to complete this topic IPV Vaccines Aged Out No longer eligi ble based on patient's age to complete this topic Meningococcal ACWY Vaccine Aged Out N o longer eligible based on patient's age to complete this topic Meningococcal B Vaccine Aged Out No l onger eligible based on patient's age to complete this topic RSV Immunization Patients Under 20 months Aged Out No longer eligible b ased on patient's age to complete this topic Varicella Vaccines Aged Out No longer eligible based on patient's age to complete this topic Procedures Procedure Name Priority Date/Time Associated Diagnosis Comments CT HEAD WO CONTRAST STAT 02/15/2025 1 0:21 PM EST ECG 12-LEAD STAT 02/15/2025 9:05 PM EST CBC WITH AUTO DIFFERENTIAL STAT 02/15/2025 8:27 PM EST HCG, SERUM, QUALITATIVE STAT 02/15/2025 8:27 PM EST B-TYPE NATRIURETIC PEPTIDE STAT 02/15/2025 8:27 PM EST MAGNESIUM STAT 02/15/2025 8:27 PM EST LIPASE STAT 02/15/2025 8:27 PM EST COMPREHENSIVE METABOLIC PANEL STAT 02/15/2025 8:27 PM EST CBC AND DIFFERENTIAL STAT 02/15/2025 8:27 PM EST TROPONIN I HIGH SENSITIVITY Timed 02/15/2025 8:27 PM EST from Last 3 Months Results * CT Head wo Contrast (02/15/2025 10:21 PM EST) Anatomical Region Laterality Modality Head and Neck Computed Tomogra phy 02/15/2025 10:5 2 PM EST Impressions 02/15/2025 10:52 PM EST No acute intracranial findings. This document has been electronically signed by: Abdiel Guerin MD on 02/15/2025 22:52:45 Narrative 02/15/2025 10:52 PM EST INDICATION: severe Vertigo CT Head WO Contrast COMPARISON: None provided FINDINGS: No acute intracranial hemorrhage. No evidence of acute infarction. No mass-effect or midline shift. No hydrocephalus. Visualized paranasal sinuses are clear. The mastoid air cells are clear. The visible orbits are normal. No acute fracture. Unremarkable soft tissues. Procedure Note Abdiel Guerin MD - 02/15/2025 INDICATION: severe Vertigo CT Head WO Contrast COMPARISON: None provided FINDINGS: No acute intracranial hemorrhage. No evidence of acute infarction. No mass-effect or midline shift. No hydrocephalus. Visualized paranasal sinuses are clear. The mastoid air cells are clear. The visible orbits are normal. No acute fracture. Unremarkable soft tissues. IMPRESSION: No acute intracranial findings. This document has been electronically signed by: Abdiel Guerin MD on 02/15/2025 22:52:45 Pro Kraus MD IMG CT PROCEDURES Final R esult * ECG 12 lead (02/15/2025 9:05 PM EST) Pathologist [facility] Ventricular Rate ECG 65 BPM GEMUSE Atrial Rate 65 BPM GEMUSE P-R Interval 152 ms GEMUSE QRS Duration 70 ms GEMUSE Q-T Interval 416 ms GEMUSE QTc 432 ms GEMUSE P Wave [place] 73 degrees GEMUSE R [place] 52 degrees GEMUSE T [place] 52 degrees GEMUSE ECG Interpretation Normal sinus rhythm Normal ECG No previous ECGs available Confirmed by YOSEPH WOOD ([id number]) on 02/18/2025 8:49:11 AM GEMUSE 02/15/2025 9:05 PM EST 02/18/2025 8:49 AM EST Sapna Betts MD ECG ORDERABLES Final Resul t GEMUSE * Troponin I high sensitivity (02/15/2025 8:27 PM EST) Pathologist [facility] High Sensitivity Troponin I <3 <=34 ng/L 02/15/2025 9:05 PM EST [facility] Blood Venous blood specimen / Unknown Venipuncture / Unknown 02/15/2025 8:27 PM EST 02/15/2025 8:41 PM EST us Sapna Betts MD LAB BLOOD ORDERABLES Final Result [facility] [address] [place] [address], * (ABNORMAL) CBC auto differential (02/15/2025 8:27 PM EST) WBC 9.9 4.8 - 10.8 K/mcL LAB HEMETOLOGY METHOD 02/15/2025 8:48 PM EST [facility] RBC 4.50 3.80 - 4.80 M/mcL LAB HEMETOLOGY METHOD 02/15/2025 8:48 PM [facility] Hemoglobin 10.3(L) 11.5 - 16.0 g/dL LAB HEMETOLOGY METHOD 02/15/2025 8:48 PM [facility] Hematocrit 32.9(L) 35.0 - 47.0 % LAB HEMETOLOGY METHOD 02/15/2025 8:48 PM [facility] MCV 73.6(L) 79.0 - 98.0 FL LAB HEMETOLOGY METHOD 02/15/2025 8:48 PM [facility] MCH 23.0(L) 27.0 - 32.0 pcg LAB HEMETOLOGY METHOD 02/15/2025 8:48 PM [facility] MCHC 31.3(L) 32.0 - 37.0 g/dL LAB HEMETOLOGY METHOD 02/15/2025 8:48 PM [facility] RDW 16.9(H) 11.0 - 15.0 % LAB HEMETOLOGY METHOD 02/15/2025 8:48 PM [facility] Platelets 337 130 - 400 K/mcL LAB HEMETOLOGY METHOD 02/15/2025 8:48 PM [facility] MPV 10.1 7.0 - 11.0 FL LAB HEMETOLOGY METHOD 02/15/2025 8:48 PM [facility] NRBC 0.0 <1.0 % LAB HEMETOLOGY METHOD 02/15/2025 8:48 PM [facility] NRBC Absolute 0.00 <0.10 K/mcL LAB HEMETOLOGY METHOD 02/15/2025 8:48 PM [facility] Neutrophils Relative 67.5 % LAB HEMETOLOGY METHOD 02/15/2025 8:48 PM [facility] Lymphocytes Relative 22.2 % LAB HEMETOLOGY METHOD 02/15/2025 8:48 PM [facility] Monocytes Relative 7.0 % LAB HEMETOLOGY METHOD 02/15/2025 8:48 PM [facility] Eosinophils Relative 2.0 % LAB HEMETOLOGY METHOD 02/15/2025 8:48 PM [facility] Basophils Relative 0.5 % LAB HEMETOLOGY METHOD 02/15/2025 8:48 PM [facility] Immature Granulocytes Relative 0.8 % LAB HEMETOLOGY METHOD 02/15/2025 8:48 PM [facility] Neutrophils Absolute 6.70 1.50 - 7.00 K/mcL LAB HEMETOLOGY METHOD 02/15/2025 8:48 PM [facility] Lymphocytes Absolute 2.21 1.00 - 5.00 K/mcL LAB HEMETOLOGY METHOD 02/15/2025 8:48 PM [facility] Monocytes Absolute 0.70 0.20 - 1.00 K/mcL LAB HEMETOLOGY METHOD 02/15/2025 8:48 PM [facility] Eosinophils Absolute 0.20 0.00 - 0.50 K/mcL LAB HEMETOLOGY METHOD 02/15/2025 8:48 PM [facility] Basophils Absolute 0.05 0.00 - 0.20 K/mcL LAB HEMETOLOGY METHOD 02/15/2025 8:48 PM EST [facility] Immature Granulocytes Absolute 0.08(H) 0.00 - 0.03 K/mcL LAB HEMETOLOGY METHOD 02/15/2025 8:48 PM EST [facility] Blood Venous blood specimen / Unknown Venipuncture / Unknown 02/15/2025 8:27 PM EST 02/15/2025 8:42 PM EST Sapna Betts MD LAB BLOOD ORDERABLES Final Result Performing Organization Address [facility]/ZIP Co de Phone Number [facility] [address] [place] [address], [place] [phone] * hCG, serum, qualitative (02/15/2025 8:27 PM EST) hCG Qual Negative Negative 02/15/2025 9:03 PM EST [facility] Blood Venous blood specimen / Unknown Venipuncture / Unknown 02/15/2025 8:27 PM EST 02/15/2025 8:42 PM EST Pro Kraus MD LAB BLOOD ORDERABLES Jelena l Result Performing Organization Address City/[facility]/ZIP Co de Phone Number [facility] [address] [place] [address], [place] [phone] * B-type natriuretic peptide (02/15/2025 8:27 PM EST) BNP 34 <=100 pcg/mL 02/15/2025 9:04 PM EST [facility] Blood Venous blood specimen / Unknown Venipuncture / Unknown 02/15/2025 8:27 PM EST 02/15/2025 8:42 PM EST Narrative [facility] - 02/15/2025 9:04 PM EST Over the counter supplements containing high doses of biotin may interfere with this assay. If interference is suspected, patients shoud be retested after refraining from biotin supplements for 72 hours. us Pro Kraus MD LAB BLOOD ORDERABLES Jelena l Result Performing Organization Address [facility]/ZIP Co de Phone Number [facility] [address] [place] [address], [place] [phone] * (ABNORMAL) Magnesium (02/15/2025 8:27 PM EST) Pathologist [facility] Magnesium 1.8(L) 1.9 - 2.6 mg/dL 02/15/2025 9:09 PM EST [facility] Blood Venous blood specimen / Unknown Venipuncture / Unknown 02/15/2025 8:27 PM EST 02/15/2025 8:41 PM EST Pro Kraus MD LAB BLOOD ORDERABLES Jelena l Result Performing Organization Address [facility] Co de Phone Number [facility] [address] [place] [address], [place] [phone] * Lipase (02/15/2025 8:27 PM EST) [facility] Lipase 34 12 - 53 unit/L 02/15/2025 9:09 PM EST [facility] Blood Venous blood specimen / Unknown Venipuncture / Unknown 02/15/2025 8:27 PM EST 02/15/2025 8:41 PM EST Pro Kraus MD LAB BLOOD ORDERABLES Jelena l Result Performing Organization Address [facility]/ZIP Co de Phone Number [facility] [address] [place] [address], [place] [phone] * (ABNORMAL) Comprehensive metabolic panel (02/15/2025 8:27 PM EST) [facility] Sodium 137 133 - 145 mmol/L 02/15/2025 9:09 PM [facility] Potassium 4.0 3.5 - 5.5 mmol/L 02/15/2025 9:09 PM [facility] Chloride 105 96 - 110 mmol/L 02/15/2025 9:09 PM [facility] CO2 24 21 - 32 mmol/L 02/15/2025 9:09 PM [facility] Anion Gap 8 3 - 11 02/15/2025 9:09 PM [facility] Glucose 112(H) 70 - 100 mg/dL 02/15/2025 9:09 PM [facility] BUN 8 5 - 25 mg/dL 02/15/2025 9:09 PM [facility] Creatinine 0.71 0.50 - 1.10 mg/dL 02/15/2025 9:09 PM [facility] eGFR 110 >=60 mL/min/1. 73m2 02/15/2025 9:09 PM [facility] Comment:Calculation based on the Chronic Kidney Disease Epidemiology Collaboration (CKD-EPI) equation refit without adjustment for race. BUN/Creatinine Ratio 11.3 02/15/2025 9:09 PM [facility] Calcium 7.6(L) 8.5 - 10.5 mg/dL 02/15/2025 9:09 PM [facility] AST (SGOT) 23 10 - 42 unit/L 02/15/2025 9:09 PM [facility] ALT (SGPT) 25 10 - 60 unit/L 02/15/2025 9:09 PM [facility] Alkaline Phosphatase 92 42 - 121 unit/L 02/15/2025 9:09 PM [facility] Total Protein 6.4 6.0 - 8.0 g/dL 02/15/2025 9:09 PM [facility] Albumin 3.9 3.2 - 5.0 g/dL 02/15/2025 9:09 PM EST [facility] Total Bilirubin 0.5 0.0 - 1.4 mg/dL 02/15/2025 9:09 PM EST [facility] Blood Venous blood specimen / Unknown Venipuncture / Unknown 02/15/2025 8:27 PM EST 02/15/2025 8:41 PM EST us Pro Kraus MD LAB BLOOD ORDERABLES Jelena l Result [facility] ([facility] [address] [place] [address], [place] [phone] from Last 3 Months Insurance [facility] Member Subscriber Plan / Payer (Ef fective 2016-Present) Name:Lizzie Alcala Relation to Subscriber:Self Name:Lizzie Alcala Payer ID:[id number] Group ID:[id number] Type:Not on file Address: [address] [place] [id number] [employer] MEDICARE Member Subscriber Plan / Payer (Ef fective 2016-Present) Name:Lizzie Alcala Relation to Subscriber:Self Name:Lizzie Alcala Payer ID:[id number] Group ID:[id number] Type:Not on file Address: [address] [place] [id number] Care Teams Masonry Inspector Relationship Specialty Start Date End Date Physician, No Pcp PCP - General 02/15/25
--- OUTSIDE RECORDS SUMMARY | 2025-03-05 16:14 | XMS_ITS | Encounter Summary ---
Author Organization [employer] Address [address] [facility] 7 [place] [address] Care Team Providers Care Glass Mechanic Name Role Phone Tito Stauffer [employer]CH[employer] Unavailable Unavailable Balbina Reynolds DO Primary Care Provider [phone] Reason for Visit * Reason Onset Date Comments Created in error 12/13/2023 Encounter Details Date Type Department Care Team ([facility] st Contact Info) Description 12/13/2023 Telephone [facility]IC[facility] [address] [place], [place] [phone] Balbina Reynolds DO [address] [place], [place] [phone] Created in error Social History Tobacco Use Types Packs/Day Years Used Date Smoking Tobacco: Every Day Cigarettes Passive Smoke Exposure: Never Smokeless Tobacco: Never Alcohol Use Standard Drinks/Week Comments Never 0 (1 standard drink = 0.6 oz pur e alcohol) Depression Answer Date Recorded Patient Health Questionnaire-9 Score 6 07/25/2023 Patient Health Questionnaire-9 Score 6 07/25/2023 Last PHQ-9: Questionnaire Data Not on file 0 07/25/2023 Housing Stability Answer Date Recorded What is your housing situation today? I have kaden velazquez 12/06/[address] you li ve. Do you have problems with any of the following? None of the above 12/06/2023 Food Insecurity Answer Date Recorded Within the past 12 months, y ou worried that your food would run out before you got money to buy more: Never True 12/06/2023 Within the past 12 months,th e food you bought just didn't last and you didn't have enough money to get more: Never True Transportation Answer Date Recorded In the past 12 months, has l ack of transportation kept you from medical appts, meetings, work or from getting things needed for daily living? No 12/06/2023 Utilities Answer Date Recorded In the past 12 months, has t he electric, gas, oil or water company threatened to shut off services in your home? No 12/06/2023 Depression Answer Date Recorded Patient Health Questionnaire-2 Score 2 07/25/2023 Internet Access Answer Date Recorded Internet Access Q1 Yes 12/06/2023 Internet Access Q2 Not on file 12/06/2023 Comments Unknown Sex and Gender Information Value [...] documented as of this encounter Care Teams Glass Mechanic Relationship Specialty Start Date End Date Balbina Reynolds DO [address] [place] [address] PCP - General Family Medicine 12/06/23 Tito Stauffer FNP Nurse Practitioner Family Medicine 01/31/23 documented as of this encounter
--- OUTSIDE RECORDS SUMMARY | 2025-03-05 16:14 | XMS_ITS | Encounter Summary ---
Author Organization [employer] Address [address] [facility] [address] [place] [address] Care Team Providers Care Tractor Trailer Moving Van Driver Name Role Phone Aliza Dawkins MD Primary Care Pro vider Tito Stauffer Unavailable Unavailable Balbina Reynolds DO Primary Care Provider + [phone] Reason for Visit * Reason Comments Med Refill Encounter Details Date Type Department Care Team (Late st Contact Info) Description 06/23/2023 Refill [facility] MED & PEDS [address] [place], [place] [phone] Tito Stauffer FNP PTSD (post-traumatic stress disorder) Social History Tobacco Use Types Packs/Day Years Used Date Smoking Tobacco: Never Passive Smoke Exposure: Never Smokeless Tobacco: Never Depression Answer Date Recorded Patient Health Questionnaire-9 Score 14 06/13/2023 Patient Health Questionnaire-9 Score 14 06/13/2023 Last PHQ-9: Questionnaire Data Not on file 0 06/13/2023 Housing Stability Answer Date Recorded What is your housing situation today? I have kaden velazquez 12/30/[address] you li ve. Do you have problems with any of the following? Pests such as bugs, ants, or mice 12/30/2022 Food Insecurity Answer Date Recorded Within the past 12 months, y ou worried that your food would run out before you got money to buy more: Never True 01/23/2023 Within the past 12 months,th e food you bought just didn't last and you didn't have enough money to get more: Never True 08/2022 Transportation Answer Date Recorded In the past 12 months, has l ack of transportation kept you from medical appts, meetings, work or from getting things needed for daily living? No 01/23/2023 Utilities Answer Date Recorded In the past 12 months, has t he electric, gas, oil or water company threatened to shut off services in your home? No 01/23/2023 Depression Answer Date Recorded Patient Health Questionnaire-2 Score 5 06/13/2023 Comments Unknown Sex and Gender Information Value Date Recorded Sex Assigned at Female 01/17/2022 10:15 AM EDT Legal Sex Female 10:15 AM EDT Gender Identity Female 01/17/2022 10:15 AM EDT Sexual Orientation Straight 01/17/2022 10 :15 AM EDT documented as of this encounter Plan of Treatment Not on file documented as of this encounter Visit Diagnoses Diagnosis PTSD (post-traumatic stress disorder) Posttraumatic stress disorder documented in this encounter Additional Health Concerns Assessment Noted Time PHQ-9 Depression Total Score: 14 024 8:59 AM EDT documented as of this encounter Care Teams Tractor Trailer Moving Van Driver Relationship Specialty Start Date End Date Aliza Dawkins MD [address] [place] [address] PCP - General Internal Medicine 08/31/22 11/27/23 Balbina Reynolds DO [address] [place] [address] PCP - General Family Medicine 12/06/23 Tito Stauffer FNP [address] [place] [address] Nurse Practitioner Family Medicine 01/31/23 documented as of this encounter
--- OUTSIDE RECORDS SUMMARY | 2025-03-05 16:14 | XMS_ITS | Encounter Summary ---
Author Organization [employer] Address [address] [place] [id number] Care Team Providers Care Steam Room Attendant Name Role Phone Tito Stauffer CARBIDER Unavailable Unavailable Balbina Reynolds DO Primary Care Provider [phone] Reason for Visit * Reason Onset Date Comments Appointment Request 11/28/2023 Encounter Details Date Type Department Care Team (Late st Contact Info) Description 11/28/2023 Telephone [facility] MEDICINE [address] [place] [address] Aliza Dawkins MD [address] [place] [address] Appointment Request Social History Tobacco Use Types [...] Recorded Patient Health Questionnaire-2 Score 2 07/25/2023 Comments Unknown Sex and Gender Information Value Date Recorded Sex Assigned at Female 01/17/2022 10:15 AM EDT Legal Sex Female 10:15 AM EDT Gender Identity Female 01/17/2022 10:15 AM EDT Sexual Orientation Straight 01/17/2022 10 :15 AM EDT documented as of this encounter Miscellaneous Notes * Telephone Encounter - Edy Peralta - 11/28/2023 1:22 PM EDT Tc from patient calling to cancel appt for 11/[address] Hearing staff writer did attempt to reschedule appt however there was no slot available for that type of appt documented in this encounter Plan of Treatment Not on file documented as of this encounter Visit Diagnoses Not on filedocumented in this encounter Additional Health Concerns Assessment Noted Time PHQ-9 Depression Total Score: 6 07/25/19 24 9:56 AM EDT documented as of this encounter Care Teams Steam Room Attendant Relationship Specialty Start Date End Date Balbina Reynolds DO [address] [place] [address] PCP - General Family Medicine 12/06/23 Tito Stauffer FNP Nurse Practitioner Family Medicine 01/31/23 documented as of this encounter
--- OUTSIDE RECORDS SUMMARY | 2025-03-05 16:14 | XMS_ITS | Encounter Summary ---
Author Organization [employer] Address [address] [facility] [address] [place] [address] Care Team Providers Care Car Rental Sales Assistant Name Role Phone Aliza Dawkins MD Primary Care Pro vider Tito Stauffer Unavailable Unavailable Balbina Reynolds DO Primary Care Provider + [phone] Reason for Visit * Reason Comments Med Refill Encounter Details Date Type Department Care Team (Late st Contact Info) Description 01/31/2023 Refill [facility] MEDICINE [address] [place] [address] Tito Stauffer FNP PTSD (post-traumatic stress disorder) Social History Tobacco Use Types Packs/Day Years Used Date Smoking Tobacco: Never Passive Smoke Exposure: Never Smokeless Tobacco: Never Depression Answer Date Recorded Patient Health Questionnaire-9 Score 12 12/20/2022 Housing Stability Answer Date Recorded What is [...] Answer Date Recorded Patient Health Questionnaire-2 Score 4 12/20/2022 Comments Unknown Sex and Gender Information Value [...] Assessment Noted Time PHQ-9 Depression Total Score: 12 023 2:50 PM EDT documented as of this encounter Care Teams Car Rental Sales Assistant Relationship Specialty Start Date End Date Aliza Dawkins MD [address] [place] [address] PCP - General Internal Medicine 08/31/22 11/27/23 Balbina Reynolds DO [address] [place] [address] PCP - General Family Medicine 12/06/23 Tito Stauffer FNP [address] [place] [phone] Nurse Practitioner Family Medicine 01/31/23 documented as of this encounter
--- OUTSIDE RECORDS SUMMARY | 2025-03-05 16:14 | XMS_ITS | Encounter Summary ---
Author Organization [employer] Address [address] [place] [address] Care Team Providers Care Director Of Search Engine Optimization Name Role Phone Aliza Dawkins MD Primary Care Pro vider Tito Stauffer Unavailable Unavailable Balbina Reynolds DO Primary Care Provider + [phone] Reason for Visit * Reason Onset Date Comments Med Refill Appointment 12/06/2022 LVM-Re: her appt for today as [id number] @ 2:45pm Encounter Details Date Type Department Care Team (Late st Contact Info) Description 12/06/2022 Telephone [facility] MEDICINE [address] [place] [address] Tito Stauffer FNP Med Refill; Appointment (LVM-Re: her appt for today as [id number] @ 2:45pm ) Social History Tobacco Use Types Packs/Day Years [...] documented as of this encounter Care Teams Director Of Search Engine Optimization Relationship Specialty Start Date End Date Aliza Dawkins MD [address] [place] [address] PCP - General Internal Medicine 08/31/22 11/27/23 Balbina Reynolds DO [address] [place] [address] PCP - General Family Medicine 12/06/23 Tito Stauffer FNP [address] [place] [address] Nurse Practitioner Family Medicine 01/31/23 documented as of this encounter
[2025-03-05 16:19] LABS: Folate 6.7 ng/mL (> or = 4.0); Vitamin B12 419 pg/mL (200-900)
[2025-03-06 04:46] LABS: HBS Num1 0.07 mIU/mL (0-7.99); HBc Num1 0.08 S/CO (0.00-0.79); HIV Num 1 0.06 S/CO (0.00-0.99); ~HepC Num1 0.08 S/CO (0.00-0.79); ~Hepatitis B Surface Antibody NONREACTIVE (Nonreactive); ~Hepatitis C Antibody Nonreactive (Nonreactive)
[2025-03-06 13:35] LABS: HBsAGNum1 0.30 S/CO (0.00-0.99); Hepatitis B Surface Antigen Negative (Negative)
[2025-03-07 08:38] LABS: ~Hepatitis A Antibody IgG 0.32 S/CO (0.00-0.99)
== END 2025-03-05 12:20 | disposition home or self-care (01) ==
LOC: HO.HHCL 12:19
PROVIDERS: PCP Family Medicine; Visit Provider Family Medicine
DX: D64.9 Anemia, unspecified (principal); Z11.4 Encounter for screening for human immunodeficiency virus [HIV]; Z01.84 Encounter for antibody response examination; Z13.1 Encounter for screening for diabetes mellitus; Z13.21 Encounter for screening for nutritional disorder; Z13.6 Encounter for screening for cardiovascular disorders
CPT/HCPCS: 36415; 80048; 80061; 80076; 82306; 82607; 82728; 82746; 83036; 83540; 83735; 84439; 84443; 85027; 86592; 86704; 86706; 86708; 86803; 87340; 87389